=== PATIENT | male | born 1965 | race Caucasian/White ===

== ENCOUNTER → 2016-08-14 | Outpatient (CLI) | payer OTHER ==
[~2016-08-14] MED LIST: ALLOPURINOL100 MG PO; ANTIVERT GENERI25 MG PO; ASPIRIN 325MG325 MG PO; BACTRIM DS 8001 TAB PO; CIPRO 500MG TA500 MG PO; FENOFIBRIC ACI135 MG PO; GEMFIBROZIL600 M1 OR; IBU600 MG PO; IBUPROFEN800 MG PO; LISINOPRIL/HCTZ1 TA3 FT; LOPRESSOR 25MG.25 MG PO; METOPROLOL25 MG PO; MULTI VITAMINS1 TA1 PO; NITROGLYCERIN0.4 M1 SL; PREDNISONE 20MG20 MG PO; PRILOSEC OTC20 MG PO; VITAMIN B COMPL1 CAP PO
[2016-08-14 18:59] LABS: BUN 18 mg/dL (7-18)
[2016-08-14 19:07] LABS: GFR (ESTIMATED) 89 ML/MIN (>60)
== END ==
LOC: LAB 10:27
PROVIDERS: Physician Assistant
DX: E78.5 Hyperlipidemia, unspecified (principal); I25.10 Atherosclerotic heart disease of native coronary artery without angina pectoris; R94.5 Abnormal results of liver function studies

== ENCOUNTER → 2017-02-08 | Outpatient (CLI) | payer OTHER ==
[2017-02-08 20:52] LABS: BUN 20 mg/dL (7-18)
[2017-02-08 21:09] LABS: GFR (ESTIMATED) 102 ML/MIN (>60)
== END ==
LOC: LAB 17:19
PROVIDERS: Physician Assistant
DX: R94.5 Abnormal results of liver function studies (principal); I10 Essential (primary) hypertension; I25.10 Atherosclerotic heart disease of native coronary artery without angina pectoris